=== PATIENT | female | born 1955 | race Caucasian/White ===

== ENCOUNTER → 2018-12-27 | Outpatient (CLI) | payer BC ==
--- NOTE | 2018-12-29 14:20 | RAD ---
DATE: 12/27/2018 8:48 AM EXAM: MAMMO SHARMIN SCREENING BILATERAL HISTORY: routine screening evaluation. COMPARISON: 03/26/2007 Bilateral CC and MLO views of the breasts were performed. Bilateral breast tomosynthesis was performed in CC and MLO projections. This study was interpreted with the benefit of Computerized Aided Detection (CAD). FINDINGS: Breast Density: SCATTERED The breast parenchyma shows scattered fibroglandular densities. Breast parenchyma level B Benign calcifications are present. A well-circumscribed nodule is seen within the slightly lateral, slightly inferior right breast, approximately 10 cm from the nipple. No suspicious masses, microcalcifications or architectural distortion is present to suggest malignancy in the left breast. The visualized axillae are unremarkable. IMPRESSION: Right breast mass, findings for which additional imaging is advised. BI-RADS CATEGORY: 0 INCOMPLETE: NEEDS ADDITIONAL IMAGING EVALUATION AND/OR PRIOR MAMMOGRAMS FOR COMPARISON. RECOMMENDED FOLLOW-UP: ADD ADDITIONAL IMAGING The patient will be contacted to return for additional imaging and a supplemental report will follow. Additional imaging to include spot compression views and ultrasound of the right breast is recommended PQRS compliance statement: Patient information was entered into a reminder system with a target due date for the next mammogram. Mammography is a sensitive method for finding small breast cancers, but it does not detect them all and is not a substitute for careful clinical examination. A negative mammogram does not negate a clinically suspicious finding and should not result in delay in biopsying a clinically suspicious abnormality. "Our facility is accredited by the [employer] Mammography Program."
== END | disposition home or self-care (01) ==
LOC: MAMMO 12-24 10:38
PROVIDERS: ATTEND Physician Assistant Medical
DX: Z12.31 Encounter for screening mammogram for malignant neoplasm of breast (principal); N63.10 Unspecified lump in the right breast, unspecified quadrant; N64.89 Other specified disorders of breast
CPT/HCPCS: 77063; 77067

== ENCOUNTER → 2021-02-26 | Outpatient (CLI) | payer BC, MEDICARE ==
--- NOTE | 2021-02-26 17:15 | RAD ---
Bilateral digital screening 2-D and 3-D (digital breast tomosynthesis) mammogram: Reason for examination: Routine screening. Comparison: Mammogram from 12/27/2018. Interpretation was made with the benefit of CAD. FINDINGS: Breast density: Category A. Breast tissue is almost entirely fatty. No suspicious breast mass, malignant appearing calcifications, or architectural distortion is seen. IMPRESSION: No evidence of malignancy. Assessment: BI-RADS 1. Negative. Recommendation: Routine screening mammograms. The patient will receive a letter with the results in the mail. Patient information will be entered i nto the mammography reminder system with a target recall date for the next mammogram. A reminder willie er will be generated. Electronically signed by: Negrita Abrams MD (02/26/2021 5:13 PM) [id number]
== END ==
LOC: MAMMO 08:48
PROVIDERS: ATTEND Physician Assistant Medical
DX: Z12.31 Encounter for screening mammogram for malignant neoplasm of breast (principal)
CPT/HCPCS: 77063; 77067

== ENCOUNTER 2021-03-24 17:20 | Inpatient (IN) | payer MEDICARE ==
[~2021-03-24] VITALS: Ht 160 cm; Wt 112.6 kg
[2021-03-24] MEDS ORDERED: ALBUTEROL SULFATE 2.5 MG/3 ML NEBU. CONT NEB ONE (17:30)
[2021-03-24] MEDS ORDERED: methylPREDNISolone SOD SUCC PF 125 MG/2 ML VIAL. IV ONE (17:45)
[2021-03-24] MEDS ORDERED: SODIUM BICARB ADULT 8.4% 50 MEQ/50 ML DISP.SYRIN. IV ONE ×2 (18:00)
[2021-03-24 18:06] LABS: BASO # 0.1 x10^3/uL (0.0-0.2); BASO % 1 % (0-3); EOS # 0.1 x10^3/uL (0.0-0.7); EOS % 1 % (0-3); HEMATOCRIT 45.4 % (36.0-47.0); HEMOGLOBIN 14.8 g/dL (12.0-15.5); LYMPH % 24 % (24-48); MEAN CORPUSCULAR HEMOGLOBIN 32 pg (25-35); MEAN CORPUSCULAR HGB CONC 33 g/dL (31-37); MEAN CORPUSCULAR VOLUME 99 fL (79-100); MONO # 1.3 x10^3/uL (0.0-1.1); MONO % 8 % (0-9); NEUT % 67 % (31-73); PLATELET COUNT 324 x10^3/uL (140-400); RED BLOOD COUNT 4.57 x10^6/uL (3.50-5.40); RED CELL DISTRIBUTION WIDTH 15.1 % (11.5-14.5); WHITE BLOOD COUNT 16.6 x10^3/uL (4.0-11.0)
[2021-03-24 18:09] LABS: CALCIUM 9.1 mg/dL (8.5-10.1); GFR 55.1; POTASSIUM 4.5 mmol/L (3.5-5.1)
[2021-03-24 18:14] LABS: ALBUMIN 3.7 g/dL (3.4-5.0); ALBUMIN/GLOBULIN RATIO 0.9 (1.0-1.7); TOTAL BILIRUBIN 0.5 mg/dL (0.2-1.0); TOTAL PROTEIN 7.6 g/dL (6.4-8.2)
--- NOTE | 2021-03-24 18:14 | PHYS DOC ---
General Adult EDM: Chief Complaint: SHORTNESS OF BREATH HPI: HPI: 66-year-old female presents via EMS with shortness of breath. The patient has been having increasing shortness of breath for a few days. Today she had significant respiratory distress and ambulance was called. When they arrived they were only able to get the patient's oxygen saturation into the 80s on a nonrebreather. The patient arrived she she appeared to be in moderate to severe respiratory distress with difficulty exhaling. She was not initially able to answer questions. She reports a history of COPD. (SHAGUFTA CURRIE DO) Review of Systems: Review of Systems: Constitutional: Denies fever or chills Eyes: Denies change in visual acuity HENT: Denies nasal congestion or sore throat Respiratory: Shortness of breath Cardiovascular: Denies chest pain or edema GI: Denies abdominal pain, nausea, vomiting, bloody stools or diarrhea : Denies dysuria Musculoskeletal: Denies back pain or joint pain Integument: Denies rash Neurologic: Denies headache, focal weakness or sensory changes Endocrine: Denies polyuria or polydipsia Lymphatic: Denies swollen glands Psychiatric: Denies depression or anxiety (SHAGUFTA CURRIE DO) Current Medications: Current Meds: Current Medications Medications (Trade) Dose Ordered Sig/Fercho Start Time Stop Time Status Last Admin Dose Admin Albuterol Sulfate (Ventolin) 10 mg 1X ONCE 03/24/21 17:30 03/24/21 17:45 DC 03/24/21 17:38 10 MG Furosemide (Lasix) 40 mg 1X ONCE 03/24/21 18:30 03/24/21 18:31 03/24/21 18:03 40 MG Methylprednisolone Sodium Succinate (SOLU-Medrol 125MG VIAL) 125 mg 1X ONCE 03/24/21 17:45 03/24/21 17:46 DC 03/24/21 17:38 125 MG Sodium Bicarbonate (Sodium Bicarb Adult 8.4% Syr) 50 meq 1X ONCE 03/24/21 18:00 03/24/21 18:01 DC (SHAGUFTA CURRIE DO) Allergies: Allergies: Allergies Coded Allergies Type Severity Reaction Last Updated Verified No Known Drug Allergies 03/24/21 No (SHAGUFTA CURRIE DO) Physical Exam: PE: Constitutional: Well developed, well nourished, obese, severe acute distress. [] HENT: Normocephalic, atraumatic, bilateral external ears normal, oropharynx mo ist, no oral exudates, nose normal. [] Eyes: PERRLA, EOMI, conjunctiva normal, no discharge. [] Neck: Normal range of motion, no tenderness, supple, no stridor. [] Cardiovascular:Heart rate 120. regular rhythm, no murmur [] Lungs & Thorax: Bilateral breath sounds severely diminished with prolonged expiratory phase. Respiratory distress. [] Abdomen: Bowel sounds normal, soft, no tenderness, no masses, no pulsatile masses. [] Skin: Warm, dry, no erythema, no rash. [] Back: No tenderness, no CVA tenderness. [] Extremities: No tenderness, no cyanosis, no clubbing, ROM intact, no edema. [] Neurologic: Alert, normal motor function, normal sensory function, no focal deficits noted. [] (SHAGUFTA CURRIE DO) Current Patient Data: Labs: Laboratory Tests Test 03/24/21 17:25 03/24/21 17:35 POC Venous pH 7.10 (7.32-7.42) L POC Venous pCO2 96 mmHg (41-51) H POC Venous pO2 65 mmHg (20-40) H Venous Blood HCO3 30 mmol/L (24-28) H POC Venous O2 Saturation (Leonie) 82 % POC FiO2 100 White Blood Count 16.6 x10^3/uL (4.0-11.0) H Red Blood Count 4.57 x10^6/uL (3.50-5.40) Hemoglobin 14.8 g/dL (12.0-15.5) Hematocrit 45.4 % (36.0-47.0) Mean Corpuscular Volume 99 fL (79-100) Mean Corpuscular Hemoglobin 32 pg (25-35) Mean Corpuscular Hemoglobin Concent 33 g/dL (31-37) Red Cell Distribution Width 15.1 % (11.5-14.5) H Platelet Count 324 x10^3/uL (140-400) Neutrophils (%) (Auto) 67 % (31-73) Lymphocytes (%) (Auto) 24 % (24-48) Monocytes (%) (Auto) 8 % (0-9) Eosinophils (%) (Auto) 1 % (0-3) Basophils (%) (Auto) 1 % (0-3) Neutrophils # (Auto) 11.0 x10^3uL (1.8-7.7) H Lymphocytes # (Auto) 4.0 x10^3/uL (1.0-4.8) Monocytes # (Auto) 1.3 x10^3/uL (0.0-1.1) H Eosinophils # (Auto) 0.1 x10^3/uL (0.0-0.7) Basophils # (Auto) 0.1 x10^3/uL (0.0-0.2) Platelet Estimate Pending Vital Signs: Vital Signs Date Time Temp Pulse Resp B/P (MAP) Pulse Ox O2 Delivery O2 Flow Rate FiO2 03/24/21 17:30 98 (SHAGUFTA CURRIE DO) EKG: EKG: [] (SHAGUFTA CURRIE DO) Radiology/Procedures: Radiology/Procedures: [] (SHAGUFTA CURRIE DO) Heart Score: C/O Chest Pain: No Risk Factors: Risk Factors: DM, Current or recent (<one month) smoker, HTN, HLP, family history of CAD, obesity. Risk Scores: Score 0 - 3: 2.5% MACE over next 6 weeks - Discharge Home Score 4 - 6: 20.3% MACE over next 6 weeks - Admit for Clinical Observation Score 7 - 10: 72.7% MACE over next 6 weeks - Early Invasive Strategies (SHAGUFTA CURRIE DO) Course & Med Decision Making: Course & Med Decision Making Pertinent Labs and Imaging studies reviewed. (See chart for details) On arrival the patient appeared to be in significant respiratory distress. He placed on nonrebreather but were only able to get an O2 saturation of about 90. Patient was struggling with an inadequate respiratory rate. We move the patient to the trauma room and placed her on BiPAP. The patient's initial venous gas showed a pH of 7.1 with a CO2 of 96. She was given 2 A of bicarb. Patient's chest x-ray suggestive of infiltrate or edema. She has been given 40 mg of Lasix and we will cover her with Rocephin and azithromycin. Rest the patient's work-up is pending. I am signing the patient out to Dr. Victor at 1813. [] (SHAGUFTA CURRIE DO) Dragon Disclaimer: Dragon Disclaimer: This electronic medical record was generated, in whole or in part, using a voice recognition dictation system. (SHAGUFTA CURRIE DO) Departure Departure: Impression: Primary Impression: Pneumonia Additional Impression: Pulmonary edema Disposition: ADMITTED INPATIENT Admitting Physician: Keith Orellana Ho, Samuel (PRABHU VICTOR MD) Condition: IMPROVED Referrals: BRUCE WELLS (PCP) SHAGUFTA CURRIE DO Mar 24, 2021 18:14 PRABHU VICTOR MD Mar 25, 2021 05:18
[2021-03-24] MEDS ORDERED: IV NORMAL SALINE 250ML 250 ML ONE (18:18)
[2021-03-24] MEDS ORDERED: cefTRIAXone SODIUM 1 GM VIAL ONE (18:19)
[2021-03-24] MEDS ORDERED: IV NORMAL SALINE 50ML 50 ML ONE (18:19)
[2021-03-24] MEDS ORDERED: AZITHROMYCIN 500 MG VIAL. IV ONE (18:19)
--- NOTE | 2021-03-24 18:20 | RAD ---
XR CHEST 1V 03/24/2021 5:30 PM INDICATION: Shortness of breath COMPARISON: None available TECHNIQUE: Portable frontal view of the chest is provided. FINDINGS: The cardiomediastinal silhouette is within normal limits. Small bilateral pleural effusions with aron cent compressive atelectasis versus infiltrates. Moderate pulmonary vascular congestion. No pneumothorax. No suspicious osseous abnormality. IMPRESSION: Consultation of findings may be associated with congestive heart failure. Superimposed interstitial p neumonitis could have similar appearance. Electronically signed by: Irma Cordova MD (03/24/2021 6:17 PM) SHARMIN
--- NOTE | 2021-03-24 18:21 | EKG ---
[address] [address] Test Date: 2021-03-24 Test Time: 18:17:40 Pat Name: SPENCER LIZAMA Department: Room: Gender: F Diffusion Furnace Operator: TAWANNA : 1951-04-13 Requested By: SHAGUFTA CURRIE Order Number: [id number] Reading MD: Measurements Intervals [place] Rate: 115 P: 176 AK: 142 QRS: 62 QRSD: 102 T: 155 QT: 326 QTc: 453 Interpretive Statements SUPRAVENTRICULAR RHYTHM QRS(T) CONTOUR ABNORMALITY CONSISTENT WITH ANTEROSEPTAL INFARCT PROBABLY OLD T ABNORMALITY IN HIGH LATERAL LEADS INFERIOR LEADS ABNORMAL ECG RI6.02 No previous ECG available for comparison
[2021-03-24] MEDS ORDERED: FUROSEMIDE 40 MG/4 ML VIAL IVP ONE (18:30)
[2021-03-24] MEDS ORDERED: AZITHROMYCIN 500 MG in IV NORMAL SALINE 250ML 250 ML IV ONE (19:00)
[2021-03-24] MEDS ORDERED: NITROGLYCERIN PREMIX 250 ML IV ONE (19:00)
[2021-03-24 19:03] LABS: % EOS 1 % (0-5); % LYMPHS 26 % (24-48); % MONOS 7 % (0-10); % SEGS 66 % (35-66); PLT ESTIMATE ADEQUATE (ADEQUATE)
[2021-03-24 19:15] LABS: INFLUENZA A PATIENT NEGATIVE (NEGATIVE); INFLUENZA B PATIENT NEGATIVE (NEGATIVE)
[2021-03-24 20:23] LABS: BARBITURATES NEG (NEG); BENZODIAZEPINES NEG (NEG); CANNABINOIDS POS (NEG); COCAINE NEG (NEG); METHADONE NEG (NEG); OPIATES NEG (NEG); PHENCYCLIDINE NEG (NEG)
[2021-03-24 20:24] LABS: AMPHETAMINE/METHAMPHETAMINE NEG (NEG)
[2021-03-24 20:26] LABS: BILIRUBIN,URINE NEG (NEG); CLARITY,URINE CLEAR; COLOR,URINE YELLOW; GLUCOSE,URINE NEG (NEG); NITRITE,URINE NEG (NEG); RBC,URINE 0 /HPF (0-2); UROBILINOGEN,URINE 0.2 mg/dL (0.2 mg/dL); WBC,URINE 0 /HPF (0-4)
[2021-03-24 20:27] LABS: BACTERIA,URINE 0 /HPF (0-FEW); HYALINE CASTS, URINE FEW /HPF; SQUAMOUS EPITHELIAL CELL,UR FEW /LPF
[2021-03-24] MEDS ORDERED: IV RINGERS SOLUTION,LACTATED 1,000 ML IV ONE (21:15)
--- NOTE | 2021-03-24 23:43 | EKG ---
[address] [address] Test Date: 2021-03-24 Test Time: 20:32:42 Pat Name: LLOYD CHU Department: Room: Gender: F Optic Fibre Drawer: JAVIER : 1955 Requested By: PRABHU VICTOR Order Number: [id number] Reading MD: Measurements Intervals [place] Rate: 96 P: 37 [place]: 156 QRS: 97 QRSD: 110 T: 41 QT: 388 QTc: 497 Interpretive Statements SINUS RHYTHM RIGHTWARD AXIS PROLONGED QT NO SPECIFIC ECG ABNORMALITIES RI6.02 No previous ECG available for comparison
--- NOTE | 2021-03-24 23:47 | EKG ---
[address] [address] Test Date: 2021-03-24 Test Time: 23:19:03 Pat Name: LLOYD CHU Department: Room: Gender: F Building Manager: JAVIER : 1955 Requested By: PRABHU VICTOR Order Number: [id number] Reading MD: Measurements Intervals [place] Rate: 89 P: 124 MD: 156 QRS: 143 QRSD: 102 T: 149 QT: 396 QTc: 483 Interpretive Statements SINUS RHYTHM LEFT ATRIAL ABNORMALITY ABNORMAL RIGHT AXIS DEVIATION LOW LIMB LEAD VOLTAGE CONSIDER RIGHT VENTRICULAR HYPERTROPHY QRS(T) CONTOUR ABNORMALITY CONSIDER ANTEROSEPTAL MYOCARDIAL DAMAGE CONSISTENT WITH HIGH LATERAL INFARCT Atrial abnormality now present Myocardial infarct finding now present Prolonged QT interval no longer present
[2021-03-25] MEDS ORDERED: FUROSEMIDE 40 MG/4 ML VIAL IVP ONE ×3 (00:15→18:00)
[2021-03-25 06:58] LABS: BASO % 0 % (0-3); EOS % 0 % (0-3); HEMATOCRIT 36.7 % (36.0-47.0); HEMOGLOBIN 12.4 g/dL (12.0-15.5); LYMPH # 0.6 x10^3/uL (1.0-4.8); LYMPH % 6 % (24-48); MEAN CORPUSCULAR HEMOGLOBIN 33 pg (25-35); MEAN CORPUSCULAR HGB CONC 34 g/dL (31-37); MEAN CORPUSCULAR VOLUME 97 fL (79-100); MONO # 0.1 x10^3/uL (0.0-1.1); MONO % 1 % (0-9); NEUT # 9.5 x10^3uL (1.8-7.7); NEUT % 93 % (31-73); PLATELET COUNT 219 x10^3/uL (140-400); RED BLOOD COUNT 3.78 x10^6/uL (3.50-5.40); RED CELL DISTRIBUTION WIDTH 14.6 % (11.5-14.5); WHITE BLOOD COUNT 10.2 x10^3/uL (4.0-11.0)
[2021-03-25 07:05] LABS: CALCIUM 8.5 mg/dL (8.5-10.1); CREATININE 0.9 mg/dL (0.6-1.0); GFR 62.3; POTASSIUM 4.4 mmol/L (3.5-5.1)
[2021-03-25 07:18] LABS: MAGNESIUM 2.1 mg/dL (1.8-2.4)
--- NOTE | 2021-03-25 13:32 | HP ---
DATE OF SERVICE: 03/25/2021 ADMIT DATE: 03/24/2021 ATTENDING PHYSICIAN: Dr. Negron. CHIEF COMPLAINT: Shortness of breath. HISTORY OF PRESENT ILLNESS: The patient is a 66-year-old female admitted from the ER. She came on home with a 2-day history of increasing shortness of breath. She has underlying COPD. She was markedly acidotic. She was treated in the ED initially, put on BiPAP. She was started on antibiotics and given diuretics. She has since been diuresed and was doing better by the time I saw her the next morning of 03/25. She has been in the ER all night. Chest x-ray was reviewed with the ER physician, it showed bilateral pleural effusion, cardiomegaly. She does have a known history of coronary artery disease. She sees the pleater at that hospital. Her last echocardiogram was just done 6 weeks ago and was reportedly to be showing normal cardiac function with no evidence of diminished ejection fraction. The patient is admitted then with acute on chronic respiratory failure related to a combination of COPD and congestive heart failure. PAST MEDICAL HISTORY: Significant for peripheral vascular disease. She has had a right-sided femoral popliteal bypass surgery. She has had COPD with continued tobacco addiction, obesity and essential hypertension. CURRENT MEDICATIONS: I am in the process of reviewing her scheduled medication list. ALLERGIES: She has no known drug allergies. MEDICATIONS: In the ED, she was given Rocephin, Lasix and the Zithromax. FAMILY HISTORY: Noncontributory. REVIEW OF SYSTEMS: Significant for the increasing shortness of breath. No COVID exposure. She was doing much better by the time I saw her. PHYSICAL EXAMINATION: GENERAL: When I saw her, this is a pleasant, middle-aged female. VITAL SIGNS: Her initial vital signs showed a blood pressure 128/60 mmHg, pulse is 98 and regular. She was afebrile, oxygen saturation 93%, now down to 7 liters by high-flow nasal cannula. HEENT: Head is without trauma. Pupils are reactive. Sclerae are nonicteric. Oropharynx is clear. NECK: Supple. LUNGS: Good breath sounds, but she still has bibasilar rales. CARDIOVASCULAR: Showed regular heart tones. No gallops. ABDOMEN: Soft, obese. No guarding or rebound tenderness. EXTREMITIES: Showed 2+ edema. NEUROLOGIC: Function focally intact. SKIN: Warm and dry. PERTINENT LABORATORY STUDIES: Admission hemoglobin was 14.8 g/dL with white count of 16,600. Chemistry panel, creatinine was 0.9 mg percent, potassium 4.4 mEq, nonfasting blood sugar 132. BNP was elevated at 3380. Troponin level high sensitivity was recorded at 89. The interpretation, this is an intermediate figure which may indicate a stress demand ischemia. Chest x-ray demonstrated mild cardiomegaly and bilateral pleural effusions. ASSESSMENT: 1. A 66-year-old female with acute on chronic congestive heart failure. 2. Acute respiratory distress, improved with diuresis. 3. Pneumonia cannot be ruled out. 4. Chronic obstructive pulmonary disease with exacerbation. 5. Peripheral vascular disease. PLAN: 1. Admit to the inpatient unit. 2. I shall track down her most recent echocardiogram report. 3. Continue diuresis with Lasix intravenously. 4. Serial chemistries. 5. Daily weights with fluid restriction. 6. Serial chemistries. SHWETHA/JAOCBO/LAURA DR: Rene TID: [id number] CC: MAYITO JEAN-BAPTISTE
[2021-03-25 17:52] VITALS: BP 179/104
[2021-03-25] MEDS ORDERED: FUROSEMIDE 40 MG/4 ML VIAL ONE (18:25)
[2021-03-25] MEDS ORDERED: DULO60CA98 PO (18:48)
[2021-03-25] MEDS ORDERED: PANT40TA6 PO (18:48)
[2021-03-25] MEDS ORDERED: DILT120C99 PO (18:48)
[2021-03-25] MEDS ORDERED: OLAN5TAB67 PO (18:48)
[2021-03-25] MEDS ORDERED: CLOP75TA PO (18:48)
[2021-03-25] MEDS ORDERED: ATOR80TA72 PO (18:48)
[2021-03-25] MEDS ORDERED: POTASSIUM CHLORIDE 20 MEQ TABLET.ER. PO SCH (19:15)
[2021-03-25 19:18] VITALS: BP_SYST 16; BP_SYST 161; BP_DIAS 106
[2021-03-25] MEDS ORDERED: DULoxetine HCL 60 MG CAPSULE.DR PO SCH (19:30)
[2021-03-25 19:44] VITALS: BP 147/98
[2021-03-25] MEDS ORDERED: OLANZapine 5 MG TABLET PO SCH (21:00)
[2021-03-25 21:27] VITALS: BP 151/87
[2021-03-25 21:47] LABS: BGAS PH 7.41 (7.35-7.45)
[2021-03-25 22:04] VITALS: BP 132/84
[2021-03-25] MEDS ORDERED: FUROSEMIDE 40 MG/4 ML VIAL IVP SCH (23:00)
[2021-03-25 23:07] VITALS: BP 159/87
[2021-03-25] MEDS ORDERED: FUROSEMIDE 20 MG/2 ML VIAL IVP ONE (23:30)
[2021-03-25] MEDS ORDERED: methylPREDNISolone SOD SUCC PF 40 MG/ML VIAL. IV ONE (23:30)
[2021-03-25] MEDS ORDERED: CONTRAST GIVEN. MC PRN (23:45)
[2021-03-25] MEDS ORDERED: IOHEXOL 350 MG/ML 100 ML VIAL. IV ONE (23:45)
[2021-03-26] VITALS (40 sets, daily range): BP systolic 112–174; BP diastolic 60–104
--- NOTE | 2021-03-26 00:55 | RAD ---
CTA CHEST INDICATION: elevated d-dimer, sob, tachycardia, tachypnea Comparison: None. TECHNIQUE: Following the uneventful administration of intravenous contrast, 100 cc Omnipaque 350, axi al CT sections were obtained through the lungs and upper abdomen. Multiplanar reconstructions and MIP images were obtained. RS compliance statement: One or more of the following individualized dose reduction techniques were utilized for this examinat ion: 1. Automated exposure control 2. Adjustment of the mA and/or kV according to patient size 3. Use of iterative reconstruction technique FINDINGS: Pulmonary arteries: No evidence of pulmonary thromboembolic disease Lungs and Airways: Diffuse bilateral groundglass opacities with dependent consolidations. No abnormal ity of the central airways. Pleura: Small right and trace left pleural effusions. Heart and Mediastinum: The visualized thyroid is normal in size and attenuation. No axillary or supra clavicular lymphadenopathy. No mediastinal, hilar or retrocrural lymphadenopathy. Cardiomegaly. No pe ricardial effusion. Coronary artery atherosclerotic disease. The great vessels of the thorax are norm al. Abdomen: Limited images through the upper abdomen show no abnormality of the visualized organs. Bones and Soft Tissues: Negative changes of the spine. IMPRESSION: 1. No evidence of pulmonary thromboembolic disease. 2. Diffuse bilateral groundglass opacities with dependent consolidations, likely pulmonary edema or i nfection. 3. Small right and trace left pleural effusions Electronically signed by: Jesu Unger MD (03/26/2021 12:52 AM) [facility]
[2021-03-26] MEDS ORDERED: NITROGLYCERIN SUBLINGUAL 0.4 MG BOTTLE OF 25. SL ONE (02:03)
[2021-03-26] MEDS: NITROGLYCERIN SUBLINGUAL 0.4 MG BOTTLE OF 25. SL PRN ×6 (02:07→02:44)
[2021-03-26] MEDS ORDERED: PIPERACILLIN/TAZOBACTAM 3.375 GM in IV NORMAL SALINE 50ML 50 ML IV ONE (02:15)
[2021-03-26 02:22] LABS: BGAS PH 7.12 (7.35-7.45)
[2021-03-26] MEDS ORDERED: SODIUM BICARBONATE IVF 150 MEQ in IV DEXTROSE 5% 1,000 ML IV ONE (02:30)
[2021-03-26] MEDS ORDERED: SODIUM BICARB ADULT 8.4% 50 MEQ/50 ML DISP.SYRIN. IV ONE (02:45)
[2021-03-26] MEDS ORDERED: NITROGLYCERIN PREMIX 250 ML IV ONE (02:45)
[2021-03-26] MEDS ORDERED: IV DEXTROSE 5% 1,000 ML IV ONE (03:15)
[2021-03-26 03:59] LABS: BGAS PH 7.21 (7.35-7.45)
[2021-03-26] MEDS ORDERED: PANTOPRAZOLE 40 MG TABLET. PO SCH (07:30)
--- NOTE | 2021-03-26 08:39 | EKG ---
[address] [address] Test Date: 2021-03-25 Test Time: 18:53:12 Pat Name: LLOYD CHU Department: Room: [place] [address] Gender: F Talent Management Specialist: : 1955 Requested By: CARMINE PADILLA Order Number: [id number] Reading MD: Carl Nicole Measurements Intervals [place] Rate: 133 P: -41 [place]: 140 QRS: 117 QRSD: 106 T: 9 QT: 298 QTc: 445 Interpretive Statements SINUS TACHYCARDIA ATRIAL PREMATURE COMPLEX(ES) LEFT ATRIAL ABNORMALITY Electronically Signed On 03-29-2021 16:46:55 [facility] [employer] by Carl Nicole
--- NOTE | 2021-03-26 08:55 | DS ---
DATE OF DISCHARGE: 03/26/2021 ATTENDING PHYSICIAN: Dr. Negron. FINAL DISCHARGE DIAGNOSES: 1. Acute on chronic respiratory failure. 2. Acute on chronic congestive heart failure. 3. Underlying pneumonia, cannot be ruled out. 4. Chronic obstructive pulmonary disease with exacerbation. 5. Peripheral vascular disease. 6. Pleural effusions. HISTORY AND PHYSICAL: The patient is a 66-year-old female with known heart and lung disease. She was admitted through the ED with exacerbation of chronic obstructive pulmonary disease. She had a component of heart failure. She was given BiPAP in the ED. I admitted her at approximately noon on the afternoon of 03/25/2021. She was doing a little better and was able to go to the ICU. 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 She has been vaccinated against COVID. Her COVID swabs and influenza swab came back negative. PHYSICAL EXAMINATION: Please see the dictated note. PERTINENT LABORATORY AND DIAGNOSTIC STUDIES: Admission hemoglobin was 14.8 g/dL, white count 16,600, repeat it was 10,200. Chemistry panel: Sodium 141 mEq, potassium 4.4, creatinine was 0.9 mg percent. BNP was elevated at 3352. Troponins were 84 and 109 respectively on the new scale. Serology negative for influenza A and B. The rapid and PCR coronavirus also negative. IMAGING STUDIES: CT of the chest demonstrated no pulmonary emboli. Diffuse ground glass opacities with dependent consolidations, likely pulmonary edema and/or infection, bilateral pleural effusions identified. COURSE IN HOSPITAL: The patient initially was stable upon transfer to the ICU. We administered Lasix, supplemental oxygen as well as intravenous corticosteroids. She declined oxygen saturation, and pCO2 went up. Arterial blood gases were drawn. Because of the severity of the illness, we elected to transfer the patient to [facility]. We were on the verge of intubating the patient, the came in and stated that the patient did not want to be intubated. Whether or not she wants to be aggressive at [place] remains the same. Dr. Morales was gracious enough to call me and accepted the patient on transfer. The patient's prognosis is guarded. She had been a full code and we are still uncertain as to what her intentions are. The patient was then discharged from our hospital by ambulance to go to the intensive care unit at the [facility] for further treatment and evaluation. SHWETHA DR: Rene TID: [id number] CC: MAYITO JEAN-BAPTISTE
[2021-03-26] MEDS ORDERED: CLOPIDOGREL BISULFATE 75 MG TABLET PO SCH (09:00)
[2021-03-26] MEDS ORDERED: ATORVASTATIN CALCIUM 20 MG TABLET PO SCH (09:00)
== END 2021-03-26 05:32 | disposition short-term general hospital (02) | DRG 193 ==
LOC: MERGE 17:20 → ER 17:20 → ICU 03-25 05:16
PROVIDERS: ADMIT Hospitalist; ATTEND Hospitalist
PROC: 5A0935A Assistance with Respiratory Ventilation, Less than 24 Consecutive Hours, High Flow/Velocity Cannula (ICD-10-PCS; principal; 2021-03-25)
PROC: 5A09457 Assistance with Respiratory Ventilation, 24-96 Consecutive Hours, Continuous Positive Airway Pressure (ICD-10-PCS; 2021-03-25)
DX: J18.9 Pneumonia, unspecified organism (principal); J96.20 Acute and chronic respiratory failure, unspecified whether with hypoxia or hypercapnia; I50.43 Acute on chronic combined systolic (congestive) and diastolic (congestive) heart failure; E87.2 Acidosis; J44.0 Chronic obstructive pulmonary disease with (acute) lower respiratory infection; J44.1 Chronic obstructive pulmonary disease with (acute) exacerbation; I11.0 Hypertensive heart disease with heart failure; I25.10 Atherosclerotic heart disease of native coronary artery without angina pectoris; I73.9 Peripheral vascular disease, unspecified; E66.9 Obesity, unspecified; Z20.822 Contact with and (suspected) exposure to COVID-19
CPT/HCPCS: 36415; 36600; 51702; 71045; 71275; 80048; 80053; 80307; 81001; 82803; 82947; 83605; 83735; 83880; 84484; 85007; 85025; 85379; 87040; 87426; 87804; 93005; 94640; 94660; 96365; 96366; 96372; 96375; 96376; J0456; J0696; J1940; J2060; J2543; J2920; J2930; J3010; J3490; J7050; J7120; Q9967; U0003; 99285-25; J7613

== ENCOUNTER 2021-05-01 18:49 | Emergency (ER) | payer MEDICARE ==
[~2021-05-01] VITALS: Ht 160 cm; Wt 112.8 kg
[~2021-05-01 18:49] MED LIST: ATOR80TA72 PO; CLOP75TA PO; DILT120C99 PO; DULO60CA98 PO; OLAN5TAB67 PO; PANT40TA6 PO
[2021-05-01] MEDS ORDERED: IPRATRPIUM/ALBUTEROL 0.5/2.5MG 3 ML NEBU. ONE (19:01)
[2021-05-01] MEDS ORDERED: SODIUM BICARBONATE 50 MEQ/50 ML VIAL. ONE (19:07)
--- NOTE | 2021-05-01 19:41 | PHYS DOC ---
Adult General Chief Complaint Chief Complaint: SHORTNESS OF BREATH HPI HPI Patient is a 66-year-old female with a past medical history significant for heart failure, CAD and COPD who presents to the emergency department in extremis via EMS with shortness of breath and oxygen saturations in the 60s. In route patient was placed on facemask which brought her oxygen saturations up in the low 80s. denies any recent travel, traumas, fevers, known ill contacts. He states she was eating and drinking normally. States she is making urine and stool normally for her. Review of Systems Review of Systems Review of systems otherwise unremarkable except noted in HPI Current Medications Current Medications Current Medications Medications (Trade) Dose Ordered Sig/Fercho Start Time Stop Time Status Last Admin Dose Admin Albuterol/ Ipratropium (Duoneb) 3 ml STK-MED ONCE 05/01/21 19:01 05/01/21 19:01 DC Fentanyl Citrate (Fentanyl 2ml Vial) 100 mcg STK-MED ONCE 05/01/21 19:04 05/01/21 19:04 DC Sodium Bicarbonate (Sodium Bicarbonate) 50 meq STK-MED ONCE 05/01/21 19:07 05/01/21 19:07 DC Allergies Allergies Allergies Coded Allergies Type Severity Reaction Last Updated Verified No Known Drug Allergies 03/25/21 No Physical Exam Physical Exam Constitutional: Well developed, well nourished, no acute distress, non-toxic appearance. [] HENT: Normocephalic, atraumatic, bilateral external ears normal, oropharynx moist, no oral exudates, nose normal. [] Eyes: conjunctiva normal, no discharge. [] Neck: Normal range of motion, no tenderness, supple, no stridor. [] Cardiovascular: Tachycardia Lungs & Thorax: In respiratory distress both hypoxic and hypercarbic, with bilateral rhonchi and mild end expiratory wheeze, increased work of breathing Abdomen: soft, no tenderness, no masses, no pulsatile masses. [] Skin: Warm, dry, no erythema, no rash. [] Extremities: No tenderness, ROM intact, no edema. [] Neurologic: Initially patient had GCS of E3 V4 M4, moving all extremities most likely due to agitation. Current Patient Data Lab Results Laboratory Tests Test 05/01/21 18:57 Glucose (Fingerstick) 246 mg/dL (70-99) H EKG EKG [] Radiology/Procedures Radiology/Procedures []NDICATION:66 years, Female, respiratory distress. FINDINGS: Cardiomegaly. Tortuous thoracic aorta with atherosclerotic calcifications. Diffuse bilateral pulmonary infiltrates, particularly in bilateral perihilar and basilar lungs. Small right pleural effusion. No pneumothorax. No acute osseous process. IMPRESSION: 1. Diffuse bilateral pulmonary infiltrates, worst in bilateral perihilar and basilar lungs. Findings suggesting of moderate to severe pulmonary edema. Other differential consideration is atypical pneumonia. Clinical correlation is advised. 2. Small right pleural effusion. Electronically signed by: Garcia Mcnulty MD (05/01/2021 8:09 PM) [facility] Heart Score C/O Chest Pain: No Risk Factors: Risk Factors: DM, Current or recent (<one month) smoker, HTN, HLP, family history of CAD, obesity. Risk Scores: Risk Factors: DM, Current or recent (<one month) smoker, HTN, HLP, family history of CAD, obesity. Course & Med Decision Making Course & Med Decision Making Patient is a 66-year-old female with heart failure and COPD who presents in respiratory hypoxia and hypercarbia and respiratory distress Vital signs notable for tachycardia, tachypnea, hypoxia and hypercarbia. Physical exam noted above. Immediately placed on the monitor with 2 IVs placed. Cardiac pads in place. Placed on BiPAP. Blood sugar 248. Blood gas notable for PCO2 greater than 130. Given high-dose nitroglycerin. Given fentanyl. Given Lasix. Given DuoNeb. Given steroids. Chest x-ray suggestive of most likely combination of pneumonia/pulmonary edema. Blood cultures obtained. Antibiotics given. Patient clinical picture improved significantly after resuscitation medications and noninvasive positive pressure ventilation. PCO2 went from greater than 1 30-68 and respiratory acidemia resolved. Patient awake, alert, oriented and pleasant. Discussed all findings with family and recommended admission for continued evaluation and treatment of her COPD exacerbation secondary to probable pneumonia and/or pulmonary edema. Influenza negative. Rapid COVID- negative. [] Dragon Disclaimer Dragon Disclaimer This electronic medical record was generated, in whole or in part, using a voice recognition dictation system. Departure Departure: Impression: Primary Impression: Respiratory distress Additional Impressions: Hypoxia Hypercarbia Pulmonary edema COPD exacerbation Disposition: 02 SHORT TERM HOSPITAL Admitting Physician: Other Condition: IMPROVED Referrals: BRUCE WELLS (PCP) Problem Qualifiers PRABHU VICTOR MD May 01, 2021 19:41
[2021-05-01] MEDS ORDERED: IPRATRPIUM/ALBUTEROL 0.5/2.5MG 3 ML NEBU. NEB ONE (19:45)
[2021-05-01] MEDS ORDERED: DEXAMETHASONE 4 MG TABLET PO ONE (19:45)
[2021-05-01] MEDS ORDERED: FUROSEMIDE 40 MG/4 ML VIAL IVP ONE (19:45)
[2021-05-01 19:48] LABS: BASO # 0.2 x10^3/uL (0.0-0.2); BASO % 1 % (0-3); EOS # 0.1 x10^3/uL (0.0-0.7); EOS % 0 % (0-3); HEMOGLOBIN 12.6 g/dL (12.0-15.5); LYMPH # 5.7 x10^3/uL (1.0-4.8); LYMPH % 24 % (24-48); MEAN CORPUSCULAR HEMOGLOBIN 34 pg (25-35); MEAN CORPUSCULAR HGB CONC 32 g/dL (31-37); MEAN CORPUSCULAR VOLUME 104 fL (79-100); MONO # 1.8 x10^3/uL (0.0-1.1); MONO % 8 % (0-9); NEUT # 15.7 x10^3uL (1.8-7.7); NEUT % 67 % (31-73); PLATELET COUNT 465 x10^3/uL (140-400); RED BLOOD COUNT 3.74 x10^6/uL (3.50-5.40); RED CELL DISTRIBUTION WIDTH 16.2 % (11.5-14.5); WHITE BLOOD COUNT 23.4 x10^3/uL (4.0-11.0)
[2021-05-01 19:51] LABS: CALCIUM 9.5 mg/dL (8.5-10.1); CREATININE 1.2 mg/dL (0.6-1.0); GFR 44.7; POTASSIUM 4.6 mmol/L (3.5-5.1)
[2021-05-01 19:57] LABS: BACTERIA,URINE 0 /HPF (0-FEW); BILIRUBIN,URINE NEG (NEG); CLARITY,URINE CLEAR; COLOR,URINE YELLOW; GLUCOSE,URINE NEG (NEG); NITRITE,URINE NEG (NEG); RBC,URINE 0 /HPF (0-2); SQUAMOUS EPITHELIAL CELL,UR OCC /LPF; UROBILINOGEN,URINE 0.2 mg/dL (0.2 mg/dL); WBC,URINE OCC /HPF (0-4)
[2021-05-01] MEDS ORDERED: DEXAMETHASONE SOD PHOS 10 MG/ML VIAL. IVP ONE (20:00)
[2021-05-01 20:04] LABS: % BANDS 4 % (0-9); % LYMPHS 17 % (24-48); % MONOS 7 % (0-10); % SEGS 72 % (35-66); ALBUMIN 3.3 g/dL (3.4-5.0); ALBUMIN/GLOBULIN RATIO 0.8 (1.0-1.7); TOTAL BILIRUBIN 0.4 mg/dL (0.2-1.0); TOTAL PROTEIN 7.6 g/dL (6.4-8.2)
[2021-05-01 20:07] LABS: PLT ESTIMATE INCREASED (ADEQUATE)
--- NOTE | 2021-05-01 20:12 | RAD ---
EXAMINATION: Chest radiograph. VIEWS: 1 COMPARISON: 03/26/2021 INDICATION:66 years, Female, respiratory distress. FINDINGS: Cardiomegaly. Tortuous thoracic aorta with atherosclerotic calcifications. Diffuse bilateral pulmonar y infiltrates, particularly in bilateral perihilar and basilar lungs. Small right pleural effusion. N o pneumothorax. No acute osseous process. IMPRESSION: 1. Diffuse bilateral pulmonary infiltrates, worst in bilateral perihilar and basilar lungs. Findings suggesting of moderate to severe pulmonary edema. Other differential consideration is atypical pneumo ella. Clinical correlation is advised. 2. Small right pleural effusion. Electronically signed by: Garcia Mcnulty MD (05/01/2021 8:09 PM) [facility]
--- NOTE | 2021-05-01 20:15 | EKG ---
[address] [address] Test Date: 2021-05-01 Test Time: 20:03:20 Pat Name: LLOYD CHU Department: Room: Gender: F Training Developer: : [id number] Requested By: PRABHU VICTOR Order Number: [id number] Reading MD: Niranjan Everett MD Measurements Intervals [place] Rate: 116 P: 40 WV: 174 QRS: 105 QRSD: 98 T: 34 QT: 324 QTc: 456 Interpretive Statements SINUS TACHYCARDIA RIGHTWARD AXIS NON-SPECIFIC ST/T CHANGES Electronically Signed On 05-01-2021 20:37:12 [employer] by Niranjan Everett MD
[2021-05-01] MEDS ORDERED: ASPIRIN CHEWABLE 81 MG TABLET. PO ONE (20:30)
[2021-05-01 21:13] LABS: BGAS PH 7.28 (7.35-7.45)
[2021-05-01 21:45] LABS: INFLUENZA A PATIENT NEGATIVE (NEGATIVE); INFLUENZA B PATIENT NEGATIVE (NEGATIVE)
[2021-05-02 01:50] VITALS: BP 129/70
== END 2021-05-02 02:10 | disposition short-term general hospital (02) ==
LOC: ER 18:49
DX: J44.1 Chronic obstructive pulmonary disease with (acute) exacerbation (principal); J81.1 Chronic pulmonary edema; R06.89 Other abnormalities of breathing; R09.02 Hypoxemia; Z20.822 Contact with and (suspected) exposure to COVID-19
CPT/HCPCS: 36415; 36600; 71045; 80053; 81001; 82803; 82947; 83735; 83880; 84484; 85007; 85025; 93005; 94640; 94660; 96365; 96375; 99285; C9803; J1100; J1940; J1956; J3010; U0003